=== PATIENT | male | born 1965 | race Caucasian/White ===

== ENCOUNTER 2022-12-18 12:35 | Outpatient (CLI) | payer BC | END 2022-12-18 12:36 | disposition home or self-care (01) | LOC: RAD 12:35 | PROVIDERS: ATTEND Nurse Practitioner Family | DX: R06.02 Shortness of breath (principal); R09.89 Other specified symptoms and signs involving the circulatory and respiratory systems; M54.2 Cervicalgia; M47.812 Spondylosis without myelopathy or radiculopathy, cervical region | CPT/HCPCS: 71046; 72040 ==

== ENCOUNTER 2024-08-13 05:56 | Day surgery (SDC) | payer BC ==
[2024-08-04 12:42] VITALS: BMI 27.9
[2024-08-13] MEDS ORDERED: PHENYLEPHRINE-NS 100 MCG/ML 10 ML SYRINGE ONE (07:00)
[2024-08-13] MEDS ORDERED: Lidocaine 2% PF 5 ML VIAL ONE (07:00)
[2024-08-13] MEDS ORDERED: Phenylephrine 10 MG/ML VIAL ONE (07:00)
[2024-08-13] MEDS ORDERED: Rocuronium Bromide 10 MG/ML (10ML VIAL) ONE (07:00)
[2024-08-13] MEDS ORDERED: Sodium Chloride 0.9% 250 ML 250 ML ONE (07:00)
[2024-08-13] MEDS ORDERED: PROPOFOL 20 ML ONE (07:01)
[2024-08-13] MEDS ORDERED: fentaNYL PF 100 MCG/2 ML SYRINGE ONE ×3 (07:01→09:53)
[2024-08-13] MEDS ORDERED: cefTRIAXone (ROCEPHIN) 2 GM VIAL ONE (07:11)
[2024-08-13] MEDS ORDERED: Sodium Chloride 0.9% 100 ML ONE (07:11)
[2024-08-13] MEDS ORDERED: Midazolam HCl 2 mg/2 ml Vial ONE (07:18)
[2024-08-13] MEDS ORDERED: Dexamethasone 4 mg/ml Vial ONE (07:43)
[2024-08-13] MEDS ORDERED: SUGAMMADEX SODIUM 200 MG/2 ML VIAL ONE (07:43)
[2024-08-13] MEDS ORDERED: Ondansetron PF 4 MG/2 ML Vial ONE (07:43)
[2024-08-13] MEDS ORDERED: Iopamidol 30 ML ONE (09:06)
[2024-08-13] MEDS ORDERED: Tamsulosin HCl 0.4 MG CAP ONE (09:22)
[2024-08-13] MEDS ORDERED: Phenazopyridine HCl 100 MG TAB ONE (09:22)
[2024-08-13] MEDS ORDERED: HYDROmorphone 0.5 MG/0.5 ML SYRINGE ONE (09:47)
[2024-08-13] MEDS ORDERED: hydrALAZINE 20 MG/ML VIAL ONE (09:56)
[2024-08-13] MEDS ORDERED: HYDROcodone/Acetaminophen 5/325 mg Tablet ONE (10:58)
[2024-08-13] MEDS ORDERED: Ketorolac Tromethamine 30 MG (1 mL) VIAL ONE (11:59)
[2024-08-13] MEDS ORDERED: Promethazine HCl 25 MG/ML VIAL ONE (12:48)
== END 2024-08-13 13:35 | disposition home or self-care (01) ==
LOC: SDC 05:56
PROVIDERS: ATTEND Urology
PROC: 0TC18ZZ Extirpation of Matter from Left Kidney, Via Natural or Artificial Opening Endoscopic (ICD-10-PCS; principal; 2024-08-13)
PROC: 0T778DZ Dilation of Left Ureter with Intraluminal Device, Via Natural or Artificial Opening Endoscopic (ICD-10-PCS; principal; 2024-08-13)
DX: N20.0 Calculus of kidney (principal); N40.0 Benign prostatic hyperplasia without lower urinary tract symptoms; I10 Essential (primary) hypertension; I35.0 Nonrheumatic aortic (valve) stenosis; I42.2 Other hypertrophic cardiomyopathy; E78.5 Hyperlipidemia, unspecified; Z79.82 Long term (current) use of aspirin; Z79.899 Other long term (current) drug therapy
CPT/HCPCS: 74018; 74420; 82365; 88300; C1769; J0360; J0696; J1100; J1171; J1885; J2250; J2371; J2405; J2550; J2704; J7050; Q9967